=== PATIENT | male | born 1940 | race Caucasian/White ===

== ENCOUNTER 2016-11-03 14:53 | Emergency (ER) | payer MEDICARE, SELFPAY ==
[2016-11-03 14:54] VITALS: BMI 26.2
[2016-11-03 15:08] VITALS: TEMP 97.9
[2016-11-03 15:24] LABS: AUTOMATED BASOPHIL 0.8 % (0-2); AUTOMATED EOSINOPHIL 2.9 % (0-5); AUTOMATED LYMPH 30.3 % (17-44); AUTOMATED MONOCYTE 10.8 % (3-10); AUTOMATED NEUTROPHIL 55.2 % (45-76); MPV 7.2 fL (7.4-10.4)
[2016-11-03 15:44] LABS: BLOOD UREA NITROGEN 14 MG/DL (9-20); CALCIUM 9.5 MG/DL (8.4-10.2); CALCULATED OSMOLALITY 252 MOs/Kg (270-290); CHLORIDE 95 mEq/L (98-107); GLUCOSE 98 MG/DL (70-99); SODIUM LEVEL 130 mEq/L (137-146); TOTAL PROTEIN 7.6 G/DL (6.3-8.2)
[2016-11-03 15:45] LABS: PARTIAL THROMB. TIME 27.6 SEC (22-35); PT-INR 1.1
--- NOTE | 2016-11-03 16:50 | EDPRACDOC ---
- General Information Chief Complaint: Generalized Weakness Stated Complaint: C/O KIDNEY INFECTION ACHING IN BACK Time Seen by Provider: 11/03/16 16:31 Information Source: Patient Mode Of Arrival: Car Home Medications: Home Medications Alprazolam [Xanax] 0.5 mg PO BID PRN 03/08/16 Aspirin [Aspirin, Chewable] 81 mg PO DAILY #100 03/09/16 Dorzolamide HCl/Timolol Maleat [Dorzolamide-Timolol Eye Drops] 1 drop OU BID #1 bot 03/09/16 Furosemide [Lasix] 20 mg PO DAILY PRN #30 03/09/16 Travoprost [Travatan Z] 1 drop OU HS #1 bot 03/09/16 Finasteride [Proscar] 5 mg PO DAILY 08/08/16 Ranolazine [Ranexa] 1,000 mg PO BID 08/08/16 Oxycodone HCl/Acetaminophen [Percocet 10-325 mg Tablet] 1 tab PO TID PRN Ascorbic Acid [Vitamin C] 1,000 mg PO DAILY 11/03/16 Carvedilol [Coreg] 6.25 mg PO BID 11/03/16 Cayenne Pepper 40,000 units PO DAILY 11/03/16 Cholecalciferol [Vitamin D] 1,000 units PO DAILY 11/03/16 Ciprofloxacin HCl [Cipro] 500 mg PO BID #14 tab 11/03/16 Krill/Om-3/Dha/Epa/Phospho/Ast [Krill Oil 1,000 mg Softgel] 2 cap PO DAILY 11/03 L. Acidophilus/Pectin, [place] [Acidophilus Capsule] 1 cap PO DAILY 11/03/16 Lactobacillus Combo No.11 [Probiotic] 1 each PO DAILY #30 cap.sprink 11/03/16 Lisinopril [Prinivil] 5 mg PO DAILY 11/03/16 Nitrofurantoin [Macrobid] 100 mg PO BID #14 cap 11/03/16 Omeprazole [Prilosec] 40 mg PO DAILY 11/03/16 Ondansetron HCl [Zofran] 8 mg PO BID 11/03/16 Prasugrel HCl [Effient] 10 mg PO DAILY 11/03/16 Pumpkin Seed Oil/Saw Odessa [Saw Odessa 160 mg Softgel] 160 mg PO DAILY Sulfamethoxazole/Trimethoprim [Bactrim Ds Tablet] 1 tab PO .BID X 7D 11/03/16 Ubidecarenone [Co Q-10] 150 mg PO DAILY 11/03/16 Veggie Enzymes 1 tab PO DAILY 11/03/16 Vitamin B Complex [B Complex] 1 tab PO DAILY 11/03/16 Allergies/Adverse Reactions: Allergies Allergy/AdvReac Type Severity Reaction Status Date / Time Iodinated Contrast Media - Allergy Mild RASH Verified 11/03/16 15:04 IV Dye [IV Dye, Iodine Containing Contrast ] - History of Present Illness HPI: PT HAS AN INDWELLING CATHETER. HE SAID THAT HE WAS DX'D WITH AN UTI A FEW DAYS AGO. HE HAS BEEN ON BACTRIM SINCE THE . PT'S URINE CULTURE GREW OUT ACINETOBACTER AND STAPH EPI. BOTH WERE SENSITIVE TO BACTRIM. PT SAID HE'S BEEN TAKING THE MEDS, BUT HE DOES NOT FEEL LIKE HE IS GETTING ANY BETTER. PT SAID THE CATHETER HAS BEEN IN FOR [address] DID NOT WANT TO CHANGE IT UNTIL THE INFECTION WAS GONE. Onset: Friday Urinary Pain Location: Reports: Suprapubic, Right Flank Symptom Onset: Reports: Gradual Pain Severity: Mild Pain Quality: Reports: Sharp History of: Reports: UTI, Chronic Indwelling Cath Oral Intake: Normal Urinary Output: Normal Associated Signs and Symptoms: Reports: Flank Pain ED Past Medical History - Patient Medical History Cardiac History: Reports: Hypertension, Heart Attack (04/04), CABG, Hypercholesterolemia Psychological History: Reports: Anxiety, Substance Use Disorder (uses alcohol). Denies: Depression, Bipolar Disorder Systemic History: Denies: Cancer, Anemia Surgical History: Reports: Appendectomy, Cholecystectomy, CABG, Hernia Surgery ( Umbilical hernia and hiatal hernia same time [facility]), Tonsillectomy , Tonsillectomy/Adnoidectomy - Family Medical History Reports: Diabetes, Cardiac Disorders (Brother of an OR). Denies: Hypertension, Cancer, Stroke - Social Medical History Smoking Status: Former smoker Social History: Reports: Marijuana Use, Substance Use Disorder (uses alcohol) ETOH: Social Substance Abuse: None Lives In: Home EDM Review of Systems - Review of Systems ROS Negative Except as Marked: Yes All systems reviewed and were negative except as marked Genitourinary: Dysuria, Flank Pain - Physical Exam Constitutional: Alert (Awake), No apparent distress Oriented to: Time, Person, Place Last recorded Vital Signs: Last Vital Signs Temp 97.9 F 11/03/16 15:04 Pulse 55 L 11/03/16 15:04 Resp 18 11/03/16 15:04 BP 152/72 11/03/16 15:04 Pulse Ox 98 11/03/16 15:04 Oxygen Pulse Oxygen Saturation 98 O2 Device Room Air Oxygen Flow Rate Fraction of Inspired Oxygen ( FIO2) - HEENT Head: Normal ( normocephalic) Eye Exam: Normal (PERRL, EOMI, Sclera white) Oropharynx: Normal (Pharynx:Moist without exudate,Gums-no swelling) ENT EAC: Normal TMJ: Normal Nose: No Symptoms Reported (septum midline) Neck: Normal (FROM, trachea at midline) - Respiratory/Cardiovascular Respiratory: Normal - CTA (BBS clear to auscultation without adventitious sounds ) Cardiovascular: Bradycardia - GI Auscultation: Normal (NABS) Palpation: Normal (Soft,No rebound or guarding, non distended) Tenderness: Non tender Gannon's Sign: Negative - Musculoskeletal Back: Normal (Non-Tender) Extremities: Normal (Normal tone, Pulses 2+ No cyanosis or edema, FROM) - Integumentary Skin: Normal, Warm, Dry Lymphatics: Normal (no adenopathy) - Neurologic Memory Impaired: Normal Motor Function: Normal (Normal tone, Pulses 2+ No cyanosis or edema, FROM) Cranial Nerve: Normal (CN II-X11 intact sensation, strength 5/5) Cerebellar: Normal Mood Description: Normal Thought: Coherent Perception: Normal - Results 11/03/16 15:10 11/03/16 15:10 WBC 7.4 xk/uL (3.8-10.8) 11/03/16 15:10 RBC 3.93 xM/uL (4.70-6.10) L 11/03/16 15:10 Hgb 12.8 g/dL (14.0-18.0) L 11/03/16 15:10 Hct 37.6 % (42-52) L 11/03/16 15:10 MCV 96 fL (80-94) H 11/03/16 15:10 MCH 32.5 pg (27-32) H 11/03/16 15:10 MCHC 33.9 g/dl (33-36) 11/03/16 15:10 RDW 15.2 % (11.5-14.5) H 11/03/16 15:10 Plt Count 201 xk/uL (130-400) 11/03/16 15:10 MPV 7.2 fL (7.4-10.4) L 11/03/16 15:10 Neut % (Auto) 55.2 % (45-76) 11/03/16 15:10 Lymph % (Auto) 30.3 % (17-44) 11/03/16 15:10 [place]cock % (Auto) 10.8 % (3-10) H 11/03/16 15:10 Eos % (Auto) 2.9 % (0-5) 11/03/16 15:10 Baso % (Auto) 0.8 % (0-2) 11/03/16 15:10 Absolute Neuts (auto) 4.07 xk/uL (1.7-8.2) 11/03/16 15:10 Absolute Lymphs (auto) 2.22 xk/uL (0.65-4.75) 11/03/16 15:10 PT 10.9 SEC (9.2-11.2) 11/03/16 15:10 INR 1.1 11/03/16 15:10 APTT 27.6 SEC (22-35) 11/03/16 15:10 Sodium 130 mEq/L (137-146) L 11/03/16 15:10 Potassium 4.8 mEq/L (3.5-5.1) 11/03/16 15:10 Chloride 95 mEq/L (98-107) L 11/03/16 15:10 Carbon Dioxide 24 mMOL/L (22-33) 11/03/16 15:10 Anion Gap 16 mEq/L (8-16) 11/03/16 15:10 BUN 14 MG/DL (9-20) 11/03/16 15:10 Creatinine 1.00 MG/DL (0.66-1.25) 11/03/16 15:10 Estimated GFR (MDRD) > 60 mL/min (>=60) 11/03/16 15:10 Glucose 98 MG/DL (70-99) 11/03/16 15:10 Calculated Osmolality 252 MOs/Kg (270-290) L 11/03/16 15:10 Calcium 9.5 MG/DL (8.4-10.2) 11/03/16 15:10 Total Bilirubin 0.8 MG/DL (0.2-1.3) 11/03/16 15:10 AST 36 IU/L (17-59) 11/03/16 15:10 ALT 39 IU/L (21-72) 11/03/16 15:10 Alkaline Phosphatase 61 IU/L (50-160) 11/03/16 15:10 Troponin I < 0.01 ng/mL (<.04) 11/03/16 15:10 Mcg-[id number]-Ukupogiysyj Pept 770 pg/mL (0-900) 11/03/16 15:10 Total Protein 7.6 G/DL (6.3-8.2) 11/03/16 15:10 Albumin 4.4 G/DL (3.5-5.0) 11/03/16 15:10 Lab Results 11/03/16 11/03/16 11/03/16 15:10 15:10 15:10 WBC 7.4 RBC 3.93 L Hgb 12.8 L Hct 37.6 L MCV 96 H MCH 32.5 H MCHC 33.9 RDW 15.2 H Plt Count 201 MPV 7.2 L Neut % (Auto) 55.2 Lymph % (Auto) 30.3 [place] % (Auto) 10.8 H Eos % (Auto) 2.9 Baso % (Auto) 0.8 Absolute Neuts (auto) 4.07 Absolute Lymphs (auto) 2.22 PT 10.9 INR 1.1 APTT 27.6 Sodium 130 L Potassium 4.8 Chloride 95 L Carbon Dioxide 24 Anion Gap 16 BUN 14 Creatinine 1.00 Estimated GFR (MDRD) > 60 Glucose 98 Calculated Osmolality 252 L Calcium 9.5 Total Bilirubin 0.8 AST 36 ALT 39 Alkaline Phosphatase 61 Troponin I < 0.01 Qtf-D-Bsdjjfhxiuf Pept 770 Total Protein 7.6 Albumin 4.4 - EKG EKG #1 EKG Time: 16:42 -: Yes EKG interpreted by me Rate: bpm: 65 [place]: Normal Rhythm: NSR Block: None Hypertrophy: None ST: Normal Decision Time to Discharge: 18:05 - Departure Yes I personally saw and evaluated the patient. Disposition: Home Condition: Fair Final Diagnosis: UTI (urinary tract infection), Chronic indwelling Sanchez catheter Instructions: Urinary Tract Infection in Men (ED) Education/Counseling Given To: Patient Education/Counseling Given Regarding: Diagnosis, Treatment, Follow Up Prescriptions: Ciprofloxacin HCl [Cipro] 500 mg PO BID #14 tab Lactobacillus Combo No.11 [Probiotic] 1 each PO DAILY #30 cap.sprink Nitrofurantoin [Macrobid] 100 mg PO BID #14 cap
[2016-11-03 17:31] LABS: RBC/URINE TNTC (0-2); WBC/URINE TNTC (0-2)
[2016-11-03 17:32] LABS: LEUKOCYTES/URINE 3+ (NEGATIVE); NITRITE/URINE NEG (NEGATIVE); URINE OCCULT BLOOD 3+ (NEG/TRACE)
[2016-11-03] MEDS ORDERED: ALPRAZOLAM 0.5 MG TAB PO ONE (18:11)
[2016-11-03] MEDS ORDERED: NITROFURANTOIN 100 MG CAP PO ONE (18:12)
[2016-11-03] MEDS ORDERED: CIPROFLOXACIN HCL 500 MG TAB PO ONE (18:12)
[2016-11-03 18:26] VITALS: BP 134/63; PULSE 60
== END 2016-11-03 18:25 | disposition home or self-care (01) ==
LOC: ED 14:53
DX: N39.0 Urinary tract infection, site not specified (principal)
CPT/HCPCS: 36415; 80053; 81001; 83880; 84484; 85025; 85610; 85730; 87077; 87086; 87186; 93005; 99283; A9270; J3490